=== PATIENT | female | born 1980 | race Caucasian/White ===

== ENCOUNTER 2017-08-01 18:14 | Emergency (ER) | payer SELFPAY ==
--- NOTE | 2017-08-01 19:33 | EDM.PDOC ---
ED HPI GENERAL MEDICAL PROBLEM - General Chief Complaint: Upper Extremity Injury/Pain Stated Complaint: RIGHT HAND POSSIBLY BROKEN Time Seen by Provider: 08/01/17 18:19 Source of Information: Reports: Patient History Limitations: Reports: No Limitations - History of Present Illness INITIAL COMMENTS - FREE TEXT/NARRATIVE: HISTORY AND PHYSICAL: History of present illness: [Patient comes to the emergency room complaining of right medial hand pain. History of fracture to the fifth metacarpal proximally one year ago. She states that she hit her hand on a wall accidentally on Friday which cause some mild discomfort. On Friday, she slipped and fell reinjuring her hand. Since that time she's had bruising swelling and pain to the same area of her previous surgery. No numbness or tingling. No open wounds.] Review of systems: As per history of present illness and below otherwise all systems reviewed and negative. Past medical history: As per history of present illness and as reviewed below otherwise noncontributory. Surgical history: As per history of present illness and as reviewed below otherwise noncontributory. Social history: No reported history of drug or alcohol abuse. Family history: As per history of present illness and as reviewed below otherwise noncontributory. Physical exam: Swelling and bruising is present over the fifth metacarpal. She is tender over the distal metacarpal. Refill is less than 2 seconds and neurovascular is intact. Sensation is intact. Neuro: Awake, alert, oriented. Exam nonfocal. Diagnostics: [Right hand x-ray] Impression: [nondisplaced fracture of the distal 5th metacarpal] Plan: [an ulnar gutter splint is placed without difficulty. OTC analgesics at home. Follow up w/ Dr. Mahajan early next week. She is in agreement w/ today's plan. ] Definitive disposition and diagnosis as appropriate pending reevaluation and review of above. right hand Pain Score (Numeric/FACES): 8 - Related Data Allergies Allergy/AdvReac Type Severity Reaction Status Date / Time No Known Allergies Allergy Verified 08/01/17 19:01 Home Meds: Home Meds . [No Known Home Meds] 09/02/16 [History] Past Medical History - Past Health History Medical/Surgical History: Denies Medical/Surgical History Gastrointestinal History: Reports: GERD Genitourinary History: Reports: None [employer] History: Reports: - Past Surgical History GI Surgical History: Reports: None Female Surgical History: Reports: Section, D&C Musculoskeletal Surgical History: Reports: Other (See Below) Other Musculoskeletal Surgeries/Procedures:: right hand rx last year Social & Family History - Family History Family Medical History: Noncontributory - Tobacco Use Smoking Status *Q: Current Every Day Smoker Years of Tobacco use: 20 Packs/Tins Daily: 1 - Caffeine Use Caffeine Use: Reports: Coffee, Soda Caffeine Use Comment: 2 drinks./day - Recreational Drug Use Recreational Drug Use: Yes Drug Use in Last 12 Months: Yes Recreational Drug Type: Reports: Marijuana/Hashish Recreational Drug Use Frequency: Socially Review of Systems - Review of Systems Review Of Systems: ROS reveals no pertinent complaints other than HPI. ED EXAM, GENERAL - Physical Exam Exam: See Below Course - Vital Signs Last Recorded V/S: Last Vital Signs Temp 97.6 F 08/01/17 18:55 Pulse 89 08/01/17 18:55 Resp 18 08/01/17 18:55 BP 111/66 08/01/17 18:55 Pulse Ox 96 08/01/17 18:55 - Orders/Labs/Meds Orders: Active Orders 24 hr Category Date Time Status Hand 2V Rt [CR] Stat Exams 08/01/17 18:26 Taken Departure - Departure Time of Disposition: 19:40 Disposition: Home, Self-Care 01 Condition: Good Clinical Impression: Metacarpal bone fracture - Discharge Information Referrals: PCP,None [Primary Care Provider] - Forms: ED Department Discharge Additional Instructions: The following information is given to patients seen in the emergency department who are being discharged to home. This information is to outline your options for follow-up care. We provide all patients seen in our emergency department with a follow-up referral. The need for follow-up, as well as the timing and circumstances, are variable depending upon the specifics of your emergency department visit. If you don't have a primary care physician on staff, we will provide you with a referral. We always advise you to contact your personal physician following an emergency department visit to inform them of the circumstance of the visit and for follow-up with them and/or the need for any referrals to a consulting specialist. The emergency department will also refer you to a specialist when appropriate. This referral assures that you have the opportunity for follow-up care with a specialist. All of these measure are taken in an effort to provide you with optimal care, which includes your follow-up. Under all circumstances we always encourage you to contact your private physician who remains a resource for coordinating your care. When calling for follow-up care, please make the office aware that this follow-up is from your recent emergency room visit. If for any reason you are refused follow-up, please contact the [facility] emergency department at and asked to speak to the emergency department charge nurse. [facility] Specialty care- [facility] [address] [place] [address], [address] [place] [address] Call the above listed clinic on Friday morning to get scheduled for an appointment at the beginning of the week. Keep splint in place. Tylenol alternating with ibuprofen as needed for discomfort. Return to ER as needed as discussed.
[2017-08-01 23:13] VITALS: BP 121/70
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
== END 2017-08-01 20:04 | disposition home or self-care (01) ==
LOC: MW.ED 18:14
DX: S62.366A Nondisplaced fracture of neck of fifth metacarpal bone, right hand, initial encounter for closed fracture (principal); F17.210 Nicotine dependence, cigarettes, uncomplicated; W01.0XXA Fall on same level from slipping, tripping and stumbling without subsequent striking against object, initial encounter; W22.01XA Walked into wall, initial encounter
CPT/HCPCS: 29125; 73120-26-RT; 73120-RT; 99283

== ENCOUNTER 2019-02-14 01:59 | Emergency (ER) | payer SELFPAY ==
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
[2019-02-14 04:15] VITALS: BP 128/60
== END 2019-02-14 04:13 | disposition home or self-care (01) ==
LOC: MW.ED 01:59
DX: S09.93XA Unspecified injury of face, initial encounter (principal); S09.90XA Unspecified injury of head, initial encounter; F17.210 Nicotine dependence, cigarettes, uncomplicated; Y04.8XXA Assault by other bodily force, initial encounter
CPT/HCPCS: 70450; 70450-26; 70486; 70486-26; 99284-25

== ENCOUNTER 2020-05-14 06:45 | Emergency (ER) | payer SELFPAY ==
[2020-05-14] MEDS ORDERED: Acetaminophen 500 MG Tab PO ONE (07:08)
[2020-05-14] MEDS ORDERED: Ibuprofen 400 MG Tab PO ONE (07:08)
[2020-05-14] MEDS ORDERED: oxyCODONE 5 MG Tab PO ONE (07:08)
--- NOTE | 2020-05-14 07:14 | EDM.PDOC ---
ED HPI GENERAL MEDICAL PROBLEM - General Chief Complaint: Upper Extremity Injury/Pain Stated Complaint: LT SHOULDER HURTS Time Seen by Provider: 05/14/20 07:01 Source of Information: Reports: Patient History Limitations: Reports: No Limitations - History of Present Illness INITIAL COMMENTS - FREE TEXT/NARRATIVE: 39/F w/no past medical history presenting with left shoulder pain after a fall. Patient was walking outside on the ice when she slipped and fell, striking her L shoulder on the ground. She did strike the back of her head but did not lose consciousness. No anticoagulant med usage. Arrives to ED c/o severe pain to anterior L shoulder/L clavicle. No numbness/weakness to LUE. No pain to head, neck, chest, spine, abdomen, or other extremities. Past medical history: Reviewed, no additional pertinent history. Surgical history: Reviewed in system, no additional pertinent history. Social history: Reviewed in system, no additional pertinent history. Family history: Reviewed in system, no additional pertinent history. PHYSICAL EXAM Vital signs reviewed. Nursing notes reviewed. Constitutional: Awake, alert, non-distressed. Head: Normocephalic, atraumatic. Eyes: EOMI, conjunctiva normal, no discharge, no scleral icterus. Ears, Nose, Throat: External ears and nose normal, moist oral mucosa. Cardiovascular: 2+ left radial pulse, capillary refill less than 2 seconds in L hand. Pulmonary: normal work of breathing, no accessory muscle use. Abdomen/GI: Soft, nontender, nondistended, no guarding or rigidity, no masses. Musculoskeletal: Deformity to left clavicle. Tenderness to palpation of the left clavicle the left proximal humerus. Integumentary: Appropriate color for ethnicity, warm, dry, no pallor or jaundice, no rash. Neurologic: Alert, answering questions appropriately, normal speech, no facial droop, moving all extremities well. Normal sensation to LUE. Psychiatric: Appropriate mood and affect, normal thought process. left shoulder Pain Score (Numeric/FACES): 10 - Related Data Allergies Allergy/AdvReac Type Severity Reaction Status Date / Time No Known Allergies Allergy Verified 05/14/20 06:55 Home Meds: Home Meds Acetaminophen [Acetaminophen Extra Strength] 500 - 1,000 mg PO Q6H PRN #30 tablet 05/14/20 [Rx] Ibuprofen 400 mg PO Q6H PRN #30 tablet 05/14/20 [Rx] oxyCODONE HCl [Oxycodone HCL] 10 mg PO Q6HR PRN #15 tablet 05/14/20 [Rx] Past Medical History - Past Health History Medical/Surgical History: Denies Medical/Surgical History HEENT History: Reports: None Cardiovascular History: Reports: None Respiratory History: Reports: None Gastrointestinal History: Reports: GERD Genitourinary History: Reports: 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: Musculoskeletal History: Reports: None Neurological History: Reports: None Psychiatric History: Reports: None Endocrine/Metabolic History: Reports: None Insulin Pump Model and Return Clerk: none Hematologic History: Reports: None Immunologic History: Reports: None Oncologic (Cancer) History: Reports: None Dermatologic History: Reports: None - Infectious Disease History Infectious Disease History: Reports: None - Past Surgical History Head Surgeries/Procedures: Reports: None HEENT Surgical History: Reports: Oral Surgery GI Surgical History: Reports: None Female Surgical History: Reports: Section, D&C Musculoskeletal Surgical History: Reports: Other (See Below) Other Musculoskeletal Surgeries/Procedures:: right hand rx last year Social & Family History - Family History Family Medical History: Noncontributory - Tobacco Use Tobacco Use Status *Q: Never Tobacco User Second Hand Smoke Exposure: No - Caffeine Use Caffeine Use: Reports: Coffee, Soda Caffeine Use Comment: 2 drinks./day - Recreational Drug Use Recreational Drug Use: No Review of Systems - Review of Systems Review Of Systems: See Below ED EXAM, GENERAL - Physical Exam Exam: See Below Course - Vital Signs Text/Narrative:: 39-year-old female hemodynamically stable, afebrile, well-appearing, looks nontoxic. Differential diagnosis includes but is not limited to: Fracture, hematoma, contusion, etc. Neurovascularly intact in the left upper extremities. Tylenol, Motrin for pain. Ordered x-rays of the left shoulder. X-rays of the left lateral shoulder demonstrate a fracture of the lateral third of the clavicle with displacement. No skin tenting or evidence of neurovascular compromise. Placed in an arm sling, will be referred for orthopaedic surgery clinic follow- up. NVI intact pre and post splinting. Acetaminophen, ibuprofen, oxycodone for pain. Follow-up with orthopaedic surgery in 1-2 weeks. Plan: Patient is stable to discharge home with orthopaedic surgery clinic follow-up. Strict emergency department return precautions were provided, patient indicated understanding. All questions were answered prior to departure. Discharged in good condition. Perianal female deformity to the left clavicle after a fall. Last Recorded V/S: Last Vital Signs Temp 36.3 C 05/14/20 07:35 Pulse 88 05/14/20 07:35 Resp 16 05/14/20 07:35 BP 109/73 05/14/20 07:35 Pulse Ox 98 05/14/20 07:35 - Orders/Labs/Meds Meds: Medications Discontinued Medications Generic Name Dose Route Start Last Admin Trade Name Freq PRN Reason Stop Dose Admin Acetaminophen 1,000 mg 05/14/20 07:08 05/14/20 07:15 Tylenol Extra Strength PO 05/14/20 07:09 1,000 mg ONETIME ONE Administration Ibuprofen 400 mg 05/14/20 07:08 05/14/20 07:16 Motrin PO 05/14/20 07:09 400 mg ONETIME ONE Administration Oxycodone HCl 10 mg 05/14/20 07:08 05/14/20 07:15 Oxycodone PO 05/14/20 07:09 10 mg ONETIME ONE Administration Departure - Departure Time of Disposition: 07:41 Disposition: Home, Self-Care 01 Condition: Good Clinical Impression: Closed left clavicular fracture Qualifiers: Encounter type: initial encounter Clavicle location: unspecified part of clavicle Fracture alignment: displaced Qualified Code(s): S42.002A - Fracture of unspecified part of left clavicle, initial encounter for closed fracture - Discharge Information *PRESCRIPTION DRUG MONITORING PROGRAM REVIEWED*: Yes *COPY OF PRESCRIPTION DRUG MONITORING REPORT IN PATIENT AKSHAT: Not Applicable Instructions: Clavicle Fracture, [id number], How To Use a Sling, [id number] Referrals: [facility] - Orthopaedics [Provider Group] - 1 Week (For follow-up fracture care.) Forms: ED Department Discharge, ED Return to Work/School Form Additional Instructions: X-rays of the shoulder show that you fractured your clavicle (collar bone). This normally heals just fine and the majority of patients do not need a surgery. Treatment is immobilization in an arm sling until you can be seen by the orthopaedic surgeon in about 1-2 weeks. We are going to prescribe some medications for pain. Take as directed, as needed. Warning signs to come back to the ED include severe pain, numbness or weakness of the arm, trouble breathing, chest pain, or any other new or concerning symptoms. Please return the emergency department immediately if your symptoms worsen or if you feel worse. Thank you for choosing the [facility] emergency department in [place] for your medical needs today. It was a pleasure caring for you. The following information is given to patients seen in the emergency department who are being discharged. This information is to outline your options for follow-up care. We provide all patients seen in our emergency department with a follow-up referral. The need for follow-up, as well as the timing and circumstances, are variable depending upon the specifics of your emergency department visit. If you don't have a primary care physician on staff, we will provide you with a referral. We always advise you to contact your personal physician following an emergency department visit to inform them of the circumstance of the visit and for follow-up with them and/or the need for any referrals to a consulting specialist. The emergency department will also refer you to a specialist when appropriate. This referral assures that you have the opportunity for follow-up care with a specialist. All of these measure are taken in an effort to provide you with optimal care, which includes your follow-up. Under all circumstances we always encourage you to contact your private physician who remains a resource for coordinating your care. When calling for follow-up care, please make the office aware that this follow-up is from your recent emergency room visit. If for any reason you are refused follow-up, please contact the [facility] Emergency Department at and asked to speak to the emergency department charge nurse. If you do not have a primary care physician that is caring for you, you can contact these clinics below to set up an appointment to establish care: [facility] - Primary Care [address] [place] [address] [facility] [address] [place] [address] Sepsis Event Note (ED) - Evaluation Sepsis Screening Result: No Definite Risk - Focused Exam Vital Signs: Vital Signs Temp Pulse Resp BP Pulse Ox 05/14/20 07:35 36.3 C 88 16 109/73 98 05/14/20 06:55 36.6 C 94 18 125/82 97
--- NOTE | 2020-05-14 07:52 | CR ---
INDICATION: Slipped on ice. Deformity over left clavicle. Technique : Three views left shoulder FINDINGS: Moderately displaced acute comminuted fracture involving the lateral left clavicle. The clavicle medial to the fracture site is displaced to moderate degree superiorly. Overlying moderate soft tissue swelling. No fracture or dislocation of left humerus or humeral head. Remainder negative. Dictated by Thierry Black MD @ May 14 2020 7:48AM Signed by Dr. Thierry Black @ May 14 2020 7:49AM
[2020-05-14 08:28] VITALS: BP 114/74; PULSE 74
== END 2020-05-14 08:39 | disposition home or self-care (01) ==
LOC: MW.ED 06:45
DX: S42.032A Displaced fracture of lateral end of left clavicle, initial encounter for closed fracture (principal); W00.0XXA Fall on same level due to ice and snow, initial encounter; Y93.01 Activity, walking, marching and hiking
CPT/HCPCS: 73030; 99283; A9270

== ENCOUNTER → 2020-05-17 | Day surgery (SDC) | payer SELFPAY ==
[~2020-05-17] MED LIST: Dexamethasone 4 MG/ML 5 ML MDV ONE; Lactated Ringers 1,000 ML IV SCH; Midazolam 1 MG/ML 2 ML SDV ONE; Ondansetron 4 MG/2 ML SDV ONE; Propofol 200 MG/20 ML SDV ONE; Rocuronium Bromide 50 MG/5 ML Syringe ONE; Succinylcholine/Sod PF 100 MG/5 ML SYRINGE IV ONE; ceFAZolin 2 GM in Premix Bag 1 BAG IV SCH; fentaNYL 250 MCG/5 ML SDV ONE
== END ==
LOC: MW.SDS 06:00
PROVIDERS: ATTEND Orthopaedic Surgery
DX: S42.032A Displaced fracture of lateral end of left clavicle, initial encounter for closed fracture (principal); U07.1 COVID-19; Z53.09 Procedure and treatment not carried out because of other contraindication
CPT/HCPCS: 81025; J0330; J1100; J2001; J2250; J2405; J2704; J3010; U0002

== ENCOUNTER 2022-04-01 19:30 | Emergency (ER) | payer MEDICAID ==
[2022-04-01] MEDS ORDERED: methylPREDNISolone Sodium Succinate 125 MG/2 ML SDV IM ONE (20:55)
[2022-04-01] MEDS ORDERED: diphenhydrAMINE 50 MG Cap PO ONE (20:58)
[2022-04-01 21:47] VITALS: BP 121/65; PULSE 95
== END 2022-04-01 21:48 | disposition home or self-care (01) ==
LOC: MW.ED 19:30
DX: L30.9 Dermatitis, unspecified (principal)
CPT/HCPCS: 96372; 99282; A9270; J2930